=== PATIENT | male | born 1945 | race Caucasian/White ===

== ENCOUNTER → 2016-11-17 | Outpatient (CLI) | payer OTHER | LOC: EMI 09:00 | DX: G62.9 Polyneuropathy, unspecified (principal); M62.50 Muscle wasting and atrophy, not elsewhere classified, unspecified site; M50.322 Other cervical disc degeneration at C5-C6 level; M50.323 Other cervical disc degeneration at C6-C7 level; M47.813 Spondylosis without myelopathy or radiculopathy, cervicothoracic region; M71.38 Other bursal cyst, other site; M51.24 Other intervertebral disc displacement, thoracic region | CPT/HCPCS: 72141; 72146 ==